=== PATIENT | male | born 1945 | race Caucasian/White ===

== ENCOUNTER 2017-11-02 10:16 | Outpatient (CLI) | payer MEDICARE ==
--- NOTE | 2017-11-02 13:19 | CT ---
CT ABDOMEN AND PELVIS WITH AND WITHOUT CONTRAST: Technique: Multiple axial tomograms were obtained in the abdomen and pelvis without IV enhancement. T his was followed by post contrast imaging of the abdomen and pelvis with IV enhancement in the portal venous and delayed venous phase following a urographic protocol. History: Microhematuria. FINDINGS: Review of the noncontrast images show no evidence of urinary tract calculus. No hydronephrosis is see n. The bladder is contracted on the noncontrast images. Review of the post contrast study show numerous small renal cystic lesions. The largest of these is s een in the left renal cortex measuring approximately 1.0 cm. The other lesions are subcentimeter and too small to adequately characterize. There is no enhancing mass identified. On the delayed sequence contrast is seen in the collecting structures. The bladder is never distended and remains mildly cont rasted even on the delayed sequence, therefore, adequate bladder evaluation cannot be made. Images through the lung bases show a small peripheral pleural base nodule in the left lung base measu ring approximately 5 mm. There is pleural plaque like calcification over the right hemidiaphragm. Thi s suggests prior asbestos exposure. There is mild plaque like calcification involving the left hemidi aphragm as well. There are numerous hepatic cystic lesions. The largest is in the upper right lobe under the diaphragm measuring approximately 4.5 cm diameter. There is a 2.4 cm cyst in the left lobe and there are sever al other smaller hepatic cystic lesions which are subcentimeter. The spleen and pancreas appear unremarkable. There are bilateral adrenal nodules. There is a nodule from the lateral limb of the right adrenal khloe suring 1.5 cm on coronal images and there is a nodule involving the left adrenal measuring up to 2.3 cm on the coronal images. The precontrast density of both of these nodules are low, indicating benign adenomas. Aorta is normal caliber. Small bowel loops appear normal. Appendix is normal. Scattered diverticula a re seen throughout the colon, more prominent in the left colon and sigmoid. No significant prostatic hypertrophy identified. No adenopathy identified. There are at least two radiopaque gallstones layering dependently in the gallbladder. IMPRESSION: 1. There are numerous small low density lesions throughout both kidneys. Most of these are subcentime ter and too small to adequately characterize. A repeat contrasted CT abdomen could be performed in 6- 12 months to confirm stability of these tiny lesions. 2. The bladder is not adequately evaluated due to contraction on all sequences. 3. Bilateral adrenal nodules which have densities consistent with benign adenomas. 4. Multiple hepatic cysts. 5. Cholelithiasis. 6. Images through the lung bases reveal calcified pleural plaque in the lung bases. A tiny pleural ba sed nodule in the left peripheral left lower lobe is seen. Consider dedicated CT chest which could be performed with low dose protocol for screening. POS: [facility]
[2017-11-02] MEDS ORDERED: Iopamidol 370 76% 100 ML VIAL ONE (14:02)
== END 2017-11-02 10:17 | disposition home or self-care (01) ==
LOC: CT 10:16
PROVIDERS: ATTEND Urology
DX: R31.29 Other microscopic hematuria (principal); K80.20 Calculus of gallbladder without cholecystitis without obstruction; E27.8 Other specified disorders of adrenal gland; N28.89 Other specified disorders of kidney and ureter; K76.89 Other specified diseases of liver
CPT/HCPCS: 74178

== ENCOUNTER 2018-01-26 12:34 | Outpatient (CLI) | payer MEDICARE | END 2018-01-26 12:35 | disposition home or self-care (01) | LOC: BICCT 12:34 | PROVIDERS: ATTEND Family Medicine | DX: Z77.090 Contact with and (suspected) exposure to asbestos (principal); R91.1 Solitary pulmonary nodule | CPT/HCPCS: 36415; 71250; 84153; 84154 ==

== ENCOUNTER 2018-03-10 23:05 | Observation (INO) | payer MEDICARE ==
[2018-03-10 23:29] LABS: #Lymphocytes 1.6 thou/uL (1.20-3.40); #Monocytes 0.5 thou/uL (0.11-0.59); #Neutrophils 4.7 thou/uL (1.40-6.50); %Basophils 0.6 % (0.0-1.0); %Eosinophils 0.7 % (0.0-10.0); %Lymphocytes 23.1 % (21.0-51.0); %Monocytes 7.1 % (0.0-10.0); %Neutrophils 68.4 % (42.0-75.0); Mean Corpuscular Volume 91.4 fl (80.0-94.0); Mean Platelet Volume 7.8 fL (7.4-10.4); Platelet Count 154 thou/uL (130-400); RBC Distribution Width 12.7 % (11.5-14.5); White Blood Cell (WBC) Count 6.9 thou/uL (4.8-10.8)
[2018-03-10 23:52] LABS: ALT (SGPT) 32 U/L (8-55); AST (SGOT) 20 U/L (5-34); Albumin 4.5 g/dL (3.4-4.8); Alkaline Phosphatase 93 U/L (40-150); Anion Gap 16 mmol/L (10-20); BUN (Urea Nitrogen) 18 mg/dL (8.4-25.7); Bilirubin, Total 0.6 mg/dL (0.2-1.2); CK (CPK) 35 U/L (30-200); Calc. Creatinine Clearance 0 mL/min (70-130); Calcium 9.8 mg/dL (7.8-10.44); Carbon Dioxide 20 mmol/L (23-31); Chloride 106 mmol/L (98-107); Estimated GFR-MDRD 73; Globulin 3.1 g/dL (2.4-3.5); Glucose 155 mg/dL (83-110); Potassium 3.7 mmol/L (3.5-5.1); Protein, Total 7.6 g/dL (5.8-8.1); Sodium 138 mmol/L (136-145)
[2018-03-10 23:56] LABS: CKMB 0.5 ng/mL (0-6.6); Troponin I Less than 0.010 ng/mL (< 0.028)
[2018-03-11] MEDS ORDERED: Nitroglycerin 2% Ointment 1 INCH/1 GM Packet ONE (01:00)
[2018-03-11] MEDS ORDERED: Nitroglycerin 0.4 MG TAB (25 Tab Bottle) ONE (01:00)
[2018-03-11] MEDS ORDERED: Metoprolol Tartrate 5 MG/5 ML VIAL ONE (01:00)
[2018-03-11] MEDS ORDERED: Morphine 4 MG/ML VIAL ONE ×2 (02:10→17:08)
[2018-03-11 03:18] LABS: Troponin I 0.028 ng/mL (< 0.028)
[2018-03-11] MEDS ORDERED: Ondansetron ODT 4 MG TAB ONE (03:50)
[2018-03-11 04:54] VITALS: BMI 27.1
[2018-03-11] MEDS ORDERED: Ondansetron ODT 4 MG TAB SL PRN (05:23)
[2018-03-11] MEDS ORDERED: Ondansetron HCl/PF 4 MG/2 ML Vial IVP PRN ×2 (05:23→19:07)
[2018-03-11] MEDS ORDERED: Nitroglycerin 0.4 MG TAB (25 Tab Bottle) SL SCH (05:30)
[2018-03-11] MEDS ORDERED: Pregabalin 75 MG CAP PO SCH ×3 (05:45→15:00)
[2018-03-11 06:12] LABS: Troponin I 0.017 ng/mL (< 0.028)
[2018-03-11] MEDS ORDERED: Morphine 4 MG/ML VIAL SLOW IVP SCH (06:45)
[2018-03-11] MEDS ORDERED: Losartan 25 MG TAB PO SCH (09:00)
[2018-03-11] MEDS ORDERED: Aspirin 325 MG TAB PO SCH (09:00)
--- NOTE | 2018-03-11 09:03 | RAD ---
PORTABLE AP CHEST: Date: 03/10/18 HISTORY: Chest pain. FINDINGS: There is calcified pleural based plaque seen overlying the left mid lung zone and at the right lung b ase. Lungs are otherwise clear. Cardiac silhouette and pulmonary vasculature are within normal limits . Thoracic aorta is ectatic. IMPRESSION: 1. No acute cardiopulmonary process. 2. Calcified pleural based plaques bilaterally. This can be seen with prior asbestos exposure. POS: [facility]
[2018-03-11] MEDS: HYDROcodone/Acetaminophen 10/325 mg Tablet PO SCH ×4 (09:51→21:53)
--- NOTE | 2018-03-11 10:29 | ULT ---
RIGHT UPPER QUADRANT ULTRASOUND: Date: 03/11/18 COMPARISON: None. HISTORY: Pain, abnormal CT. TECHNIQUE: Multiplanar Garrido scale sonographic imaging of the right upper quadrant obtained. FINDINGS: Imaged pancreas is grossly unremarkable, but poorly assessed secondary to body habitus and bowel gas. The hepatic parenchyma is slightly heterogeneous and echogenic. Scattered hepatic cysts are noted, be tter assessed on recent CT examination of the abdomen also performed 03/11/18. Gallbladder is not well assessed on this examination secondary to body habitus and echogenicity of th e hepatic parenchyma. Recent CT demonstrated findings suggesting small stones, which could not be see n on this study. Gallbladder wall is thickened, measuring 5.0 mm. The right kidney is echogenic with diffuse cortical thinning, poorly assessed on this exam. The slipper maker reports a positive Moya's sign. IMPRESSION: Positive Moya's sign with thickened gallbladder wall. Findings suspicious for possible cholecystit is. Surgical consultation advised. POS: [facility]
[2018-03-11] MEDS ORDERED: Lidocaine 1% PF 5 ML VIAL ONE (11:32)
[2018-03-11] MEDS ORDERED: PHENYLEPHRINE-NS 100 MCG/ML 10 ML SYRINGE ONE (11:32)
[2018-03-11] MEDS ORDERED: Labetalol 100 MG/20 ML MDV ONE (11:32)
[2018-03-11] MEDS ORDERED: ePHEDrine/0.9% NaCl/PF SYRINGE 50 mg/10 ml ONE (11:32)
[2018-03-11] MEDS ORDERED: Succinylcholine Chloride 20 MG/ML 10 ml SYRINGE FS ONE (11:32)
[2018-03-11] MEDS ORDERED: PROPOFOL 200 MG/20 ML VIAL ONE (11:32)
--- NOTE | 2018-03-11 11:42 | CT ---
PRELIMINARY REPORT/[facility]/EMERGENTY AFTER-HOURS PROCEDURE Addendum created by Alfredito Andrea MD on 03/11/2018 2:07 AM Central Time ([place]) Examination r esults of the patient were discussed with KATE TRINIDAD on 03/11/2018 at 2:06 AM CDT C[employer] SERVICES SPECIALIST. 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 HX AAA repair TECHNIQUE: Axial computed tomographic angiography images of the chest with intravenous contrast using pulmonary embolism protocol. MIP reconstructed images were created and reviewed. Coronal and sagittal reformatt ed images were created and reviewed. COMPARISON: No relevant prior studies available. FINDINGS: Pulmonary arteries: The pulmonary arterial system is suboptimally opacified with I.V. contrast. While no definite central pulmonary emboli are appreciated, pulmonary emboli in the distal lobar and segme ntal branches cannot be excluded on the basis of this study. Contrast density measurement within the main pulmonary artery is 113 HU. Aorta: Normal caliber thoracic aorta without dissection or aneurysm. Lungs: No alveolar infiltrate. No mass. Pleural space: Calcified pleural plaques. No pneumothorax. No pleural fluid collection. Heart: Minimal anterior pericardial fluid. No evidence of RV dysfunction. Thyroid: Bilateral thyroid nodules. Mild retrosternal extension of the right lobe of the thyroid. Bones/joints: No acute fracture. No dislocation. Soft tissues: Unremarkable. Lymph nodes: Unremarkable. No enlarged lymph nodes. IMPRESSION: 1. Normal caliber thoracic aorta without dissection or aneurysm. 2. No alveolar infiltrate. 3. Calcified pleural plaques. 4. Minimal anterior pericardial fluid. 5. Suboptimal contrast opacification of the pulmonary arterial sytem. No central pulmonary emboli are seen but more distal emboli cannot be excluded by this study. CT Angiography Abdomen With Intravenous Contrast TECHNIQUE: Axial computed tomographic angiography images of the abdomen with intravenous contrast. MIP reconstru cted images were created and reviewed. Coronal and sagittal reformatted images were created and reviewed. COMPARISON: No relevant prior studies available. FINDINGS: Aorta: Normal-caliber abdominal aorta without aneurysm or dissection. Celiac trunk and mesenteric arteries: SMA originates from the celiac axis - a normal variant. No occl usion or significant stenosis. Renal arteries: No acute findings. No occlusion or significant stenosis. Lung bases: Unremarkable. No mass. No consolidation. Liver: Cysts within the liver as well as a few hypodensities which are too small to definitively jamar acterize. Gallbladder and bile ducts: Small calcified stones within the gallbladder. 2 air collections within t he gallbladder fundus with trace external stranding which may reflect a cholangitis / cholecystitis. No ductal dilation. Pancreas: Unremarkable. No ductal dilation. No mass. Spleen: Unremarkable. No splenomegaly. Adrenals: Bilateral nodular adrenal glands. Kidneys and ureters: Unremarkable. No hydronephrosis. No solid mass. Stomach and bowel: Scattered colon diverticuli without evidence of diverticulitis. No obstruction. Appendix: Normal appendix. Intraperitoneal space: Unremarkable. No significant fluid collection. No free air. Bones/joints: See above. Soft tissues: Small fat-containing umbilical hernia. Lymph nodes: Unremarkable. No enlarged lymph nodes. IMPRESSION: 1. Small calcified stones within the gallbladder. 2 air collections within the gallbladder fundus wit h trace external stranding which may reflect a cholangitis / cholecystitis. 2. Normal-caliber abdominal aorta without aneurysm or dissection. 3. Scattered colon diverticuli without evidence of diverticulitis. Thank you for allowing us to participate in the care of your patient. Dictated and Authenticated by: Alfredito Andrea MD 03/11/2018 1:43 AM Central Time ([place]) FINAL REPORT CT AORTIC DISSECTION PROTOCOL: Date: 03/11/18 HISTORY: Chest pain, prior AAA. COMPARISON: CT chest dated 02/05/18. CT abdomen and pelvis dated 11/02/17. TECHNIQUE: CT angiogram of the chest and abdomen performed after the intravenous administration of contrast. 3D rendering provided. FINDINGS/IMPRESSION: Findings and impression are concordant with the preliminary report. The small foci of gas within the gallbladder may be reflux in nature. There is also a small focus of gas in the left intrahepatic bili albert system. Recommend correlation for history of sphincterotomy. POS: [facility]
[2018-03-11] MEDS ORDERED: Sodium Chloride 0.9% 1,000 ML IV SCH (11:45)
[2018-03-11] MEDS ORDERED: Piperacillin/Tazobactam 3.375 GM in Sodium Chloride 0.9% 100 ML IVPB SCH ×2 (11:45→12:00)
[2018-03-11] MEDS ORDERED: Morphine 4 MG/ML VIAL IV PRN (11:51)
[2018-03-11] MEDS ORDERED: Pantoprazole 40 MG VIAL IVP SCH (12:00)
[2018-03-11] MEDS ORDERED: Dextrose 5% in Water 1,000 ML IV PRN (13:33)
[2018-03-11] MEDS ORDERED: Dextrose 50% Abboject 50 ML SYRINGE SLOW IVP PRN (13:33)
[2018-03-11] MEDS ORDERED: HumaLOG 300 UNITS/3 ML VIAL SC PRN (13:33)
--- NOTE | 2018-03-11 13:39 | PDOC.EVN ---
Event Note - Event Note Event Note: [facility] #[id number]
--- NOTE | 2018-03-11 13:58 | HP ---
DATE OF ADMISSION: 03/11/2018 CHIEF COMPLAINT: Abdominal pain. HISTORY OF PRESENT ILLNESS: This is a 72-year-old male admitted to the hospital due to severe signif icant abdominal pain. The patient was stating that the pain was on and off for the past few months a nd suddenly it got terrible prior to admission and that is why he came in. The patient states that h e currently has worsening abdominal pain. Had an episode of nausea. Denies any other diarrhea, cons tipation, chest pains, fevers or chills. Pain is epigastric, right upper quadrant radiated around to the back, dull, throbbing as well as cramping in nature, 8/10 with fluids, otherwise, 5/10. The pat ient has no other alleviating or aggravating factors. No associated symptoms. The patient is seen a nd examined. All questions answered. ALLERGIES: No known drug allergies. PAST MEDICAL HISTORY: Positive for diabetes mellitus, hyperlipidemia, hypertension, and diabetic cali ropathy. HOME MEDICATIONS: Includes glimepiride 2 mg daily, morphine sulfate 50 mg p.o. t.i.d., atorvastatin 20 mg p.o. daily, diltiazem 120 mg p.o. b.i.d., [place] 10/325 q.i.d. p.r.n. pain, losartan 100 mg p.o. daily, and pregabalin 150 mg p.o. t.i.d. SOCIAL HISTORY: Denies any smoking. Social drinker. FAMILY HISTORY: Not positive for anything pertinent. REVIEW OF SYSTEMS: Twelve point review of systems performed. Pertinent positives in the HPI. PHYSICAL EXAMINATION: VITAL SIGNS: Blood pressure 181/97, respiratory rate 16, heart rate of 85, temperature of 97.9. GENERAL: The patient appears in mild to moderate distress. HEENT: Pupils equal, round, react to light and accommodation. Extraocular muscles intact. Oral cav ity is moist and pink. NECK: Supple, nontender, mobile thyroid. LUNGS: Positive. Clear to auscultation bilaterally, no rales, rubs or crackles appreciated. CARDIAC: Regular rate and rhythm. S1 and S2. No murmurs, rubs or gallops appreciated. ABDOMEN: Positive Moya sounds in right upper quadrant. Positive bowel sounds. Mildly tender to p alpation. EXTREMITIES: 2+ peripheral pulses. No edema noted. NEUROLOGIC: Cranial nerves II-XII intact. No loss of motor or sensory function. LABORATORY DATA AND IMAGING DATA: WBC normal. BMP normal. Troponin is negative x4. Abdominal ultr asound shows gas in the region of the gallbladder wall fundus, probable stones suspicious for acute c holecystitis. CT shows normal caliber thoracic aorta without dissection or aneurysm. No alveolar in filtrates, calcified plaques and thickened gallbladder. ASSESSMENT AND PLAN: 1. Cholecystitis. 2. Diabetes mellitus type 2. 3. Hypertension. 4. Hyperlipidemia. 5. Diabetic neuropathy. At this point in time, we will place the patient on n.p.o. Admit to Internal Medicine Team. Consult Surgery. Start patient on Zosyn as well as IV fluids. We will await surgical input. Likely we julianna l need gallbladder removal. The patient is to remain a FULL CODE. SCDs for DVT prophylaxis and we w ill also start the patient on PPI inhibitors. Case and plan discussed with patient at length. He un derstands and agrees with this plan.
[2018-03-11] MEDS ORDERED: ISOVUE-370 76%-LOCM 1 ML ONE (14:19)
[2018-03-11] MEDS ORDERED: Ketorolac Tromethamine 30 MG/ML VIAL ONE (15:54)
--- NOTE | 2018-03-11 16:23 | HP ---
HISTORY OF PRESENT ILLNESS: Miki Kang is a 72-year-old male who lives in [facility] with his a nd daughter, presents to the hospital with epigastric pain and nausea. He was seen in the emergency room and evaluated. CBC, basic metabolic profile and liver function tests are normal. He had a CT s can dissection protocol that was unremarkable except for gallstones and questionable changes of jazmin cystitis. He had an ultrasound of his gallbladder revealing a normal bile duct caliber, nonvisualiza tion of the stones. Review of his computer reveals that he had a CAT scan last year demonstrating ga llstones. The patient was unaware that. The patient has been having episodes of epigastric pain. H e has been attributing to reflux, but he does not experience any chest heartburn. He has been taking Protonix at home for the intermittent epigastric pain. ALLERGIES: None. TOBACCO: None. ALCOHOL: Socially, rarely. MEDICATIONS: P.r.n. hydrocodone for chronic low back pain. He received lumbar injection last week i n Silvio, losartan, Cozaar 100 mg a day, diltiazem 120 b.i.d., glimepiride 2 mg daily p.r.n., morphi ne sulfate ER 50 mg p.o. t.i.d. for chronic back pain, Lyrica 150 mg t.i.d. for his neuropathy. REVIEW OF SYSTEMS: Atorvastatin 20 mg at bedtime. 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 He has had ORIF of his ankle, hip replacement. He had a colonoscopy 3 years ag o that was normal. 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 His activity is limited by his chronic back pain and his neuropathy. REVIEW OF SYSTEMS: Ten point noncontributory. He has never had any cardiac symptoms nor has he had any cardiac evaluations except for intermittent EKG, which he had this hospitalization was normal. PHYSICAL EXAMINATION: VITAL SIGNS: 6 feet 2, 211 pounds, 27 BMI, 97.9, 85, 181/97. HEAD, EARS, EYES, NOSE, AND THROAT: Unremarkable. LUNGS: Clear to auscultation. CARDIAC: Regular rate and rhythm without murmur or gallop. ABDOMEN: Soft. Mild tenderness in the epigastric right upper quadrant with mild guarding. EXTREMITIES: Unremarkable. Midline incision in the upper abdomen well healed. No hernias. LABORATORY DATA: White count 6, hemoglobin 17. Comprehensive metabolic profile unremarkable. Gluco se 155, carbon dioxide 20. Liver function tests normal. Lipase normal. ASSESSMENT AND PLAN: 1. Cholecystitis, cholelithiasis, CAT scan suggested a pericholecystic changes and a gallstone. Gal lstone was not seen on ultrasound and CAT scan last year showed gallstone. He was unaware of this ga llstone last year. He has had intermittent symptoms of the epigastric pain in the last several years . He has been taking Protonix for that. I have recommended laparoscopic video cholecystectomy. Unf ortunately, he had an omelet 8:00 this morning and will have to wait 8 hours post-fatty food intake f or cholecystectomy. We will plan laparoscopic cholecystectomy at 4:00 p.m. today. Postoperatively, he could be discharged home this evening or stay overnight. I have talked to his family about this. I have talked to the patient's family regarding the operative procedure, perioperative convalescence expectations, and also talked to them about the risk of operation including infection, bleeding, vis ceral and biliary injury, possibly open procedure and they consent. 2. Diabetes mellitus. 3. Hypertension. 4. Chronic back pain, L1 through L5 with herniated disk, receiving an injection in the last week or two in [place] 5. Neuropathy, on Lyrica for that.
[2018-03-11] MEDS: Pregabalin 75 MG CAP PO SCH ×2 (17:23→21:54)
[2018-03-11] MEDS ORDERED: Bupivacaine HCl 0.5%/Epinephrine 1:200,000/PF 30 ml Vial ONE (17:47)
[2018-03-11] MEDS ORDERED: Fentanyl 100 MCG/2 ML VIAL ONE (18:12)
[2018-03-11] MEDS ORDERED: Fentanyl 250 MCG/5 ML VIAL ONE (18:28)
[2018-03-11] MEDS ORDERED: Promethazine HCl 25 MG/ML VIAL IM PRN (19:07)
[2018-03-11] MEDS ORDERED: Promethazine HCl 25 MG/ML VIAL SLOW IVP PRN (19:07)
[2018-03-11] MEDS ORDERED: traMADol HCl 50 MG TAB PO PRN ×2 (19:33)
[2018-03-11] MEDS ORDERED: Acetaminophen 500 MG TAB PO PRN (19:33)
[2018-03-11] MEDS ORDERED: Ibuprofen 600 MG TAB PO PRN (19:33)
[2018-03-11] MEDS ORDERED: Fentanyl 100 MCG/2 ML VIAL SLOW IVP SCH (20:45)
--- NOTE | 2018-03-11 21:32 | OP ---
DATE OF PROCEDURE: 03/11/2018 PREOPERATIVE DIAGNOSIS: Acute on chronic cholecystitis and cholelithiasis. POSTOPERATIVE DIAGNOSIS: Acute on chronic cholecystitis and cholelithiasis. PROCEDURE PERFORMED: Laparoscopic video cholecystectomy. SURGEON: Elder Bah M.D. ANESTHESIA: General. Local 0.5% Marcaine with epinephrine 30 mL. PROCEDURE IN DETAIL: The patient was taken to the operating room where under general anesthesia, abd omen was prepared with ChloraPrep, draped in routine fashion. Local anesthetic 0.5% Marcaine with ep inephrine infiltrated into the skin and subcutaneous tissue about all port sites, total volume 30 mL used. Infraumbilical incision made and pneumoperitoneum to 15 mmHg obtained with the Veress needle, replacing it with a 5 port and video laparoscope inserted. There were no adhesions to the abdominal wall. Right subxiphoid incision made and 11 port placed. Right subcostal incision made, mid clavicu lar anterior axillary lines and 5 ports placed. There were omental adhesions over the gallbladder fu ndus taken down with the cautery, identifying the fundus, grasped and reflected cephalad. Dissection carried out freeing the gallbladder, grasping the infundibulum and reflecting laterally. Cystic art britton and duct dissected free. Critical view obtained. Cystic artery and duct doubly clipped proximal ly, divided, and gallbladder dissected free from liver bed obtaining good hemostasis prior to divisio n of final peritoneal attachments. Gallbladder seemed to be intrahepatic and hemostasis was obtained in the liver bed using cautery and April applied. Irrigant and pneumoperitoneum evacuated. All in struments removed and all skin incisions approximated with interrupted subdermal 4-0 Monocryl and Bogdan maGlue applied.
[2018-03-11] MEDS: Atorvastatin Calcium 20 MG TAB PO SCH (21:52)
[2018-03-11] MEDS: Losartan 25 MG TAB PO SCH (21:54)
[2018-03-12] MEDS: Morphine 4 MG/ML VIAL SLOW IVP PRN ×2 (02:48→07:00)
[2018-03-12] MEDS ORDERED: Mag-Al 1200 mg/1200 mg/30 ML UDCUP PO PRN (04:33)
[2018-03-12 07:55] LABS: #Lymphocytes 0.9 thou/uL (1.20-3.40); #Monocytes 1.2 thou/uL (0.11-0.59); #Neutrophils 8.6 thou/uL (1.40-6.50); %Eosinophils 0.4 % (0.0-10.0); %Lymphocytes 8.8 % (21.0-51.0); %Monocytes 11.1 % (0.0-10.0); %Neutrophils 79.7 % (42.0-75.0); Hemoglobin 15.8 g/dL (14.0-18.0); Mean Corpuscular HGB CONC 33.4 g/dL (32.0-36.0); Mean Corpuscular Hemoglobin 31.1 pg (27.0-31.0); Mean Corpuscular Volume 93.1 fl (80.0-94.0); Mean Platelet Volume 7.6 fL (7.4-10.4); Platelet Count 146 thou/uL (130-400); RBC Distribution Width 13.1 % (11.5-14.5); Red Blood Cell (RBC) Count 5.09 mill/uL (4.70-6.10); White Blood Cell (WBC) Count 10.8 thou/uL (4.8-10.8)
--- NOTE | 2018-03-12 08:14 | PRG ---
DATE OF SERVICE: 03/12/2018 SUBJECTIVE: Mr. Kang is doing well today, although complains of right shoulder pain, upper abdo juve pain and pain more than he expected. He has had some mild nausea intermittently, but none curr ently. He has tolerated liquids. PHYSICAL EXAMINATION: VITAL SIGNS: Temperature 97 degrees, 81, 18, 124/74. LABORATORY: None. LUNGS: Clear to auscultation. CARDIAC: Regular rate and rhythm without murmur or gallop. ABDOMEN: Soft, postoperative tenderness as expected after laparoscopic cholecystectomy. Surgical wo und is clean and dry. The abdomen is soft without guarding otherwise. ASSESSMENT AND PLAN: 1. Referred pain, right shoulder, probably secondary to cholecystectomy. We will however, check lab oratories today, CBC and comp met. We will observe him today and hold discharge pending clinical imp rovement, possibly can go home later today or tomorrow. 2. Chronic pain. He takes morphine ER orally 1.5 mg p.o. t.i.d. and [place] 10/325 four times a day a s needed. We will resume his preoperative chronic pain management.
[2018-03-12 08:25] LABS: ALT (SGPT) 88 U/L (8-55); AST (SGOT) 63 U/L (5-34); Albumin 4.3 g/dL (3.4-4.8); Alkaline Phosphatase 83 U/L (40-150); Anion Gap 15 mmol/L (10-20); BUN (Urea Nitrogen) 19 mg/dL (8.4-25.7); Bilirubin, Total 0.8 mg/dL (0.2-1.2); Calc. Creatinine Clearance 75 mL/min (70-130); Calcium 9.8 mg/dL (7.8-10.44); Carbon Dioxide 26 mmol/L (23-31); Chloride 103 mmol/L (98-107); Estimated GFR-MDRD 58; Glucose 174 mg/dL (83-110); Potassium 3.8 mmol/L (3.5-5.1); Protein, Total 7.3 g/dL (5.8-8.1); Sodium 140 mmol/L (136-145)
[2018-03-12] MEDS: Polyethylene Glycol 3350 17 GM Packet PO SCH (08:35)
[2018-03-12] MEDS: Pregabalin 75 MG CAP PO SCH ×3 (08:36→21:23)
[2018-03-12] MEDS: Morphine ER 15 MG TAB PO SCH ×3 (08:37→21:22)
[2018-03-12] MEDS: HYDROcodone/Acetaminophen 10/325 mg Tablet PO SCH ×4 (08:37→21:19)
[2018-03-12] MEDS: Glimepiride 2 MG TAB PO PRN (08:42)
--- NOTE | 2018-03-12 08:52 | PDOC.PN ---
- Subjective Encounter Start Date: 03/12/18 Encounter Start Time: 08:50 Subjective: nsg notes rev, macey lap jazmin, currently c/o abd pain intermittently -: + small amts of flatus, no BM post op since, noted 10bt VT ovn, grossly -: asymptomatic - Objective Vital Signs & Weight: Vital Signs (12 hours) Temp Pulse Resp BP BP BP Pulse Ox 03/12/18 08:38 85 109/67 03/12/18 08:00 98.3 F 85 16 109/67 96 03/12/18 04:00 97.7 F 81 18 124/74 98 03/12/18 00:00 98.4 F 83 18 146/87 H 97 Weight Weight 211 lb 4.8 oz I&O: 03/11/18 03/12/18 03/13/18 06:59 06:59 06:59 Intake Total 620 Output Total 350 Balance 270 Result Diagrams: 03/12/18 07:50 03/12/18 07:50 Additional Labs: Accuchecks 03/11/18 21:12 POC Glucose 182 H Phys Exam - Physical Examination Constitutional: NAD seated on EOB, family at bedside HEENT: PERRLA, moist MMs, sclera anicteric Neck: no nodes Respiratory: no wheezing, no rales, no rhonchi, clear to auscultation bilateral Cardiovascular: RRR, no significant murmur, no rub Gastrointestinal: soft, positive bowel sounds decreased bs, surg sites c/d/i Musculoskeletal: no edema, pulses present Neurological: moves all 4 limbs Psychiatric: normal affect Dx/Plan - Plan * cholecystitis * apprec surg c/s * s/p lap jazmin 03/11 10 bts VT ovn * appears to have been asymptomatic * check EKG, trop, mg, ECHO * continue on tele * card c/s with pt req hx aneurysm w/o repeat episodes during this hospital stay diet: as per surg, adv as macey activity: oob as macey dvt ppx Review of Systems - Medications/Allergies Allergies/Adverse Reactions: Allergies Allergy/AdvReac Type Severity Reaction Status Date / Time No Known Drug Allergies Allergy Verified 03/11/18 06:10 Medications: Current Medications Acetaminophen (Tylenol) 1,000 mg PO Q6H PRN PRN Reason: Moderate to Severe Pain (6-10) Last Admin: 03/11/18 23:34 Dose: 1,000 mg Hydrocodone Bitart/Acetaminophen ([place] 10/325) 1 tab PO QID [facility] Last Admin: 03/12/18 08:37 Dose: 1 tab Al Hydroxide/Mg Hydroxide (Maalox) 30 ml PO Q4H PRN PRN Reason: Heartburn or Indigestion Last Admin: 03/12/18 05:02 Dose: 30 ml Atorvastatin Calcium (Lipitor) 20 mg PO [facility] Last Admin: 03/11/18 21:52 Dose: 20 mg Dextrose/Water (Dextrose 50%) 25 gm SLOW IVP PRN PRN PRN Reason: Hypoglycemia Diltiazem HCl (Cardizem Cd) 120 mg PO BID [facility] Last Admin: 03/12/18 08:38 Dose: 120 mg Glimepiride (Amaryl) 2 mg PO DAILY PRN PRN Reason: Hyperglycemia Last Admin: 03/12/18 08:42 Dose: 2 mg Glucagon (Glucagon) 1 mg IM PRN PRN PRN Reason: Hypoglycemia Dextrose/Water (D5w) 1,000 mls @ 0 mls/hr IV .Q0M PRN; As Directed PRN Reason: Hypoglycemia Piperacillin Sod/Tazobactam (Sod 3.375 gm/ Sodium Chloride) 100 mls @ 200 mls/ hr IVPB Q6HR [facility] Ibuprofen (Motrin) 600 mg PO Q6H PRN PRN Reason: Pain Insulin Human Lispro (Humalog) 0 units SC .MILD SLIDING SCALE PRN PRN Reason: Mild Correctional Scale Losartan Potassium (Cozaar) 100 mg PO [facility] Last Admin: 03/11/18 21:54 Dose: 100 mg Morphine Sulfate (Morphine) 2 mg SLOW IVP Q4H PRN PRN Reason: Pain Last Admin: 03/12/18 07:00 Dose: 2 mg Morphine Sulfate (Ms Contin) 15 mg PO TID [facility] Last Admin: 03/12/18 08:37 Dose: 15 mg Pantoprazole Sodium (Protonix) 40 mg PO DAILY [facility] Last Admin: 03/12/18 08:37 Dose: 40 mg Pneumococcal Polyvalent Vaccine (Pneumovax 23) 0.5 ml IM .ONCE ONE Stop: 03/12/18 09:01 Polyethylene Glycol (Miralax) 17 gm PO DAILY [facility] Last Admin: 03/12/18 08:35 Dose: 17 gm Pregabalin (Lyrica) 150 mg PO TID [facility] Last Admin: 03/12/18 08:36 Dose: 150 mg Sodium Chloride (Flush - Normal Saline) 10 ml IVF Q12HR [facility] Last Admin: 03/12/18 08:36 Dose: 10 ml Sodium Chloride (Flush - Normal Saline) 10 ml IVF PRN PRN PRN Reason: Saline Flush Tramadol HCl (Ultram) 50 mg PO Q6H PRN PRN Reason: Mild Pain (1-3) Tramadol HCl (Ultram) 100 mg PO Q6H PRN PRN Reason: Moderate Pain (4-6)
[2018-03-12 09:42] LABS: Troponin I 0.011 ng/mL (< 0.028)
[2018-03-12] MEDS: Piperacillin/Tazobactam 3.375 GM in Sodium Chloride 0.9% 100 ML IVPB SCH ×2 (12:21→17:46)
--- NOTE | 2018-03-12 15:29 | CON ---
CARDIOLOGY CONSULTATION DATE OF CONSULTATION: 03/12/2018 INDICATION FOR CONSULTATION: A 72-year-old patient who is status post laparoscopic cholecystectomy w ho developed a 6-beat run of nonsustained ventricular tachycardia and then an idioventricular rhythm and then had a sinus beat and then had another couplet and then since that time has remained in sinus rhythm. He has had no previous cardiac history that he is aware of. He has had no previous cardiac evaluation. He does have a history, however, of diabetes, hypertension and hypercholesterolemia in a 72 years old, has never had a stress test that he is aware of. He was in the hospital after he had significant abdominal pain and was found to have cholecystitis and underwent a cholecystectomy lapar oscopically and has been doing quite well since that time. He has some abdominal discomfort, but now has stabilized. He did have an echocardiogram today, which shows a normal ejection fraction with mi ld tricuspid and mitral valve regurgitation and also he has [id number] left atrial dilatation. Right ventricular size was also normal. He has had no complaints of chest pain. His original EKG d id show evidence of normal sinus rhythm with T-wave inversion in the anterior leads. We do not have any old EKGs for comparison. PAST MEDICAL HISTORY: Significant for diabetes, hypertension, hypercholesterolemia, diabetic neuropa thy. He has had dental surgery and oral surgery. He has had some type of abdominal aortic aneurysm repair or some other type of vascular surgery done approximately in 2013, but uncertain. This was do ne at [facility]. He has also had a right hip replacement about 8 years ago. He has a left ankl e fracture, which required surgery. ALLERGIES: None. MEDICATIONS PRIOR TO ADMISSION: Included glimepiride, morphine 50 mg t.i.d., atorvastatin 20 mg kishan y, diltiazem 120 mg b.i.d., [place] 10/325 q.i.d. p.r.n. for pain, losartan 100 mg a day, pregabalin 15 0 mg t.i.d. SOCIAL HISTORY: No history of alcohol or tobacco abuse. FAMILY HISTORY: Noncontributory. No early family history of heart disease. REVIEW OF SYSTEMS: Twelve point review of systems is relatively unremarkable. He does have some dis comfort when he tries to walk with his left ankle due to previous fracture of the ankle and surgery, but is able to walk with a brace. Otherwise, 12-point review of systems is unremarkable except what is stated in the history of present illness. Please note also, he was asymptomatic with the palpitat ions. PHYSICAL EXAMINATION: GENERAL: Reveals a well-developed, well-nourished gentleman, in no acute distress. VITAL SIGNS: Blood pressure 109/67, heart rate is 85 and regular, respiration rate 16. He is afebri le. HEENT: Shows head to be normocephalic and atraumatic. Carotid pulses are present. He has a very so ft right carotid bruit. CHEST: Clear to auscultation without rales, rhonchi or wheezing. CARDIOVASCULAR: Reveals a regular rate and rhythm. Normal S1, S2. I cannot hear an S3 nor an S4 no r any significant murmurs, heaves, thrills, bruits or rubs noted. ABDOMEN: Shows incisions after his laparoscopic cholecystectomy. They appear to be clean and dry. There were no significant abnormalities. Positive bowel sounds are present. EXTREMITIES: Show no clubbing, cyanosis or edema. Popliteal pulses are present. Femoral pulses are present. I cannot palpate pedal pulses on the right, but pedal pulses on the left were present. NEUROLOGIC: He appears to be fully intact. SKIN: Warm and dry. LABORATORY DATA: Shows a creatinine of 1.23, blood sugar was 174. Hemoglobin 15.8. Cardiac enzymes are negative. Echocardiogram as noted above. Chest x-ray was unremarkable. EKG shows sinus rhythm with T-wave inversions, which were mild in the V1 through V3, which certainly could be indicative of possible ischemia. IMPRESSION: 1. Short run of nonsustained ventricular tachycardia with an idioventricular rhythm, which resolved after all within about less than 5 seconds and the whole event had resolved. He has had no further e pisodes. Unfortunately, he does have significant risk factors for coronary artery disease and does h ave a baseline abnormal EKG. I would suggest he undergo stress testing to rule out evidence for unde rlying ischemia if any is found and then further evaluation by cardiac catheterization would be indic ated. If he has a normal stress test that in addition to essentially normal echocardiogram, then the risk of him having any acute cardiac event due to the nonsustained ventricular tachycardia is less t rasmussen 1%. I would suggest he undergo stress testing prior to discharge from the hospital and further r ecommendations will depend on the results of the stress test. 2. History of diabetes. This is dealt with by the primary care service. His blood sugar was elevat ed at 174. I leave this up to the discretion of the primary service. 3. History of hypertension. This is under good control at this time. 4. Hypercholesterolemia. I did not have any recent cholesterol levels on the patient. This can be managed as an outpatient by the primary care physician. 5. Please also note that he had a right carotid bruit, which is rather soft and this can be worked u p also as an outpatient. He will need to undergo a nuclear stress test since he is unable to walk ve ry well on a treadmill due to his previous left ankle fracture and surgery. Thank you very much for allowing us to see this patient in consultation and we will plan for stress t esting, most likely tomorrow.
--- NOTE | 2018-03-12 16:45 | EKG ---
Test Reason : Blood Pressure : / mmHG Vent. Rate : 075 BPM Atrial Rate : 075 BPM P-R Int : 148 ms QRS Dur : 100 ms QT Int : 374 ms P-R-T Axes : 004 -29 012 degrees QTc Int : 417 ms Normal sinus rhythm T wave abnormality, consider anterior ischemia Abnormal ECG Confirmed by NICHO VARGAS ([id number]) on 03/12/2018 4:45:25 PM Referred By: SINDY Confirmed By:NICHO VARGAS
[2018-03-12] MEDS: Atorvastatin Calcium 20 MG TAB PO SCH (21:18)
[2018-03-13] MEDS: Piperacillin/Tazobactam 3.375 GM in Sodium Chloride 0.9% 100 ML IVPB SCH ×3 (00:40→12:08)
[2018-03-13] MEDS: Losartan 25 MG TAB PO SCH (01:02)
[2018-03-13] MEDS: Morphine 4 MG/ML VIAL SLOW IVP PRN (03:54)
--- NOTE | 2018-03-13 09:07 | PRG ---
DATE OF SERVICE: 03/13/2018 SUBJECTIVE; Miki Kang is doing well today. He feels much better. His abdominal pain is impr luanne once he resumed his chronic pain management regimen. The patient has been on full liquids and t olerated that well. He is n.p.o. this morning for a stress test due to cardiac arrhythmias after servando ng seen by Dr. Martin. PHYSICAL EXAMINATION: LUNGS: Clear to auscultation. CARDIAC: Regular rate and rhythm without murmur or gallop. ABDOMEN: Soft, nontender. Surgical wounds were clean and dry. ASSESSMENT AND PLAN: Doing well status post laparoscopic cholecystectomy. Liver function tests were normal last night. Pathology is pending. At this point, the patient is scheduled for a cardiac str ess test. I recommend he return to see me in the office if needed. Certainly if they have any fausto rns I will be glad to see him. Otherwise, since I have seen him several times postoperatively, I do not think outpatient followup is necessary unless he has problems. At this point, I will see him as needed in the hospital. Please call if necessary.
[2018-03-13] MEDS ORDERED: ADENOSINE 60 MG/20 ML VIAL ONE (09:32)
[2018-03-13] MEDS: HYDROcodone/Acetaminophen 10/325 mg Tablet PO SCH ×2 (09:50→12:10)
[2018-03-13] MEDS: Morphine ER 15 MG TAB PO SCH ×2 (09:50→15:52)
[2018-03-13] MEDS: Pregabalin 75 MG CAP PO SCH ×2 (09:50→15:54)
[2018-03-13] MEDS: Polyethylene Glycol 3350 17 GM Packet PO SCH (12:09)
[2018-03-13] MEDS: Glimepiride 2 MG TAB PO PRN (12:11)
--- NOTE | 2018-03-13 13:17 | NM ---
CARDIAC SPECT: HISTORY: A 72-year-old male with an abnormal EKG, hypertension, diabetes, dyslipidemia, and SVT. TECHNIQUE: A myocardial perfusion scan was performed using the single isotope one-day protocol with technetium 9 9m sestamibi, and 11 millicuries was injected intravenously for the rest exam, followed by 31 millicu luiza for the stress study. Pharmacologic stress with adenosine was monitored and interpreted by Dr. Villegas. FINDINGS: Homogeneous tracer distribution is seen in the myocardial segments on stress and rest images, without fixed or reversible defects. GATED SPECT LVEF: 75% WALL MOTION EXAM: Normal. IMPRESSION: Normal myocardial perfusion scan. POS: RACHELL
[2018-03-13 16:23] VITALS: BP 109/57; TEMP 98.1
== END 2018-03-13 16:50 | disposition home or self-care (01) ==
LOC: ERS 23:05 → 2NO 03-11 02:17
PROVIDERS: ADMIT Internal Medicine; ATTEND Internal Medicine
PROC: 0FT44ZZ Resection of Gallbladder, Percutaneous Endoscopic Approach (ICD-10-PCS; principal; 2018-03-10)
DX: K81.2 Acute cholecystitis with chronic cholecystitis (principal); M54.5 Low back pain; G89.29 Other chronic pain; E11.40 Type 2 diabetes mellitus with diabetic neuropathy, unspecified; I10 Essential (primary) hypertension; E78.5 Hyperlipidemia, unspecified; E78.00 Pure hypercholesterolemia, unspecified; R09.89 Other specified symptoms and signs involving the circulatory and respiratory systems; Z96.641 Presence of right artificial hip joint; Z79.84 Long term (current) use of oral hypoglycemic drugs; Z79.899 Other long term (current) drug therapy; Z98.890 Other specified postprocedural states
CPT/HCPCS: 47562; 71045; 71275; 76705; 78452; 80053 ×2; 82550; 82553; 82962 ×3; 83690; 83735; 84484 ×4; 85025 ×2; 88304; 93005 ×2; 93017; 93306; 96361; 96365; 96366 ×2; 96372; 96374; 96375; 96376 ×3; 99285; A9500; G0378 ×2; 36415; 36416; 93010; A4216; C9113; J0131; J0153; J0670; J1885; J2001; J2270; J2543; J2704; J3010; J7050; Q0162

== ENCOUNTER 2023-08-31 09:53 | Outpatient (CLI) | payer OTHER | END 2023-08-31 09:54 | disposition home or self-care (01) | LOC: ULT 09:53 | PROVIDERS: ATTEND Family Medicine | DX: E04.1 Nontoxic single thyroid nodule (principal) | CPT/HCPCS: 36415; 76536; 80053; 80061; 81001; 82043; 83036; 84443; 85025 ==

== ENCOUNTER 2024-10-14 16:00 | Inpatient (IN) | payer OTHER ==
[2024-10-14 16:54] LABS: #Basophils 0.06 10x3/uL (0.0-0.2); %Basophils 0.8 % (0.0-1.0); %Eosinophils 2.1 % (0.0-10.0); %Neutrophils 61.4 % (42.0-75.0); Hematocrit 48.7 % (42.0-52.0); Hemoglobin 16.5 g/dL (14.0-18.0); Mean Corpuscular HGB CONC 33.9 g/dL (32.0-36.0); Mean Corpuscular Hemoglobin 30.6 pg (27.0-31.0); Mean Corpuscular Volume 90.2 fL (78.0-98.0); Mean Platelet Volume 10.9 fL (7.4-10.4); Platelet Count 195 10x3/uL (130-400); RBC Distribution Width 13.4 % (11.5-14.5)
[2024-10-14 17:08] LABS: Anion Gap 13 mmol/L (10-20); BUN (Urea Nitrogen) 16 mg/dL (8.4-25.7); Calc. Creatinine Clearance 0 mL/min (70-130); Calcium 9.5 mg/dL (7.8-10.44); Carbon Dioxide 25 mmol/L (23-31); Chloride 105 mmol/L (98-107); Estimated GFR 73; Glucose 141 mg/dL (83-110); Sodium 139 mmol/L (136-145)
[2024-10-15] MEDS ORDERED: Heparin 5,000 UNITS/ML VIAL ONE (06:26)
[2024-10-15] MEDS ORDERED: EPINEPHrine 1 MG/ML VIAL ONE (06:26)
[2024-10-15] MEDS ORDERED: Bupivacaine PF 0.5% 30 ML VIAL ONE (06:26)
[2024-10-15] MEDS ORDERED: Midazolam HCl 2 mg/2 ml Vial ONE (07:08)
[2024-10-15] MEDS ORDERED: CEFAZOLIN 2 GM VIAL ONE (07:29)
[2024-10-15] MEDS ORDERED: PROPOFOL 20 ML ONE (07:37)
[2024-10-15] MEDS ORDERED: Lidocaine 2% PF 5 ML VIAL ONE (07:37)
[2024-10-15] MEDS ORDERED: Rocuronium Bromide 10 MG/ML (10ML VIAL) ONE (07:38)
[2024-10-15] MEDS ORDERED: fentaNYL PF 100 MCG/2 ML SYRINGE ONE (07:39)
[2024-10-15] MEDS ORDERED: Phenylephrine 10 MG/ML VIAL ONE (07:40)
[2024-10-15] MEDS ORDERED: Sodium Chloride 0.9% 250 ML 250 ML ONE (07:40)
[2024-10-15] MEDS ORDERED: Glycopyrrolate 0.2 MG/ML 5 ML SYRINGE ONE (08:11)
[2024-10-15] MEDS ORDERED: SUGAMMADEX SODIUM 200 MG/2 ML VIAL ONE (09:11)
[2024-10-15] MEDS ORDERED: Promethazine HCl 25 MG/ML VIAL IM PRN ×2 (09:17→09:26)
[2024-10-15] MEDS ORDERED: Ondansetron HCl/PF 4 MG/2 ML Vial IVP PRN (09:17)
[2024-10-15] MEDS ORDERED: Ipratropium/Albuterol 3 ML NEB NEB PRN (09:26)
[2024-10-15] MEDS ORDERED: Ondansetron PF 4 MG/2 ML Vial IVP PRN (09:26)
[2024-10-15] MEDS ORDERED: traMADol HCl 50 MG TAB PO PRN (09:26)
[2024-10-15] MEDS ORDERED: Acetaminophen 325 MG TAB PO PRN (09:26)
[2024-10-15] MEDS ORDERED: fentaNYL 50 mcg/mL 1 mL Vial ONE (12:00)
[2024-10-15] MEDS: Sodium Chloride 0.9% 1,000 ML IV SCH (12:36)
[2024-10-15 12:51] VITALS: BMI 28.0
[2024-10-15] MEDS: Ipratropium/Albuterol 3 ML NEB NEB SCH (13:10)
[2024-10-15] MEDS: CEFAZOLIN 2 GM in Sodium Chloride 0.9% 100 ML IVPB SCH (14:33)
[2024-10-15] MEDS: Phenylephrine 40 MG/NS 250 ML 40 MG in Premix 1 BAG IVPB SCH (15:16)
[2024-10-15] MEDS: DOPamine 400 MG/D5W 250 ML 250 ML ONE (15:38)
[2024-10-15] MEDS ORDERED: DOPamine 400 MG/D5W 250 ML 250 ML IVPB SCH (16:15)
[2024-10-15] MEDS: Atropine Sulfate 1 mg/10 ml Syringe ONE (17:19)
[2024-10-15] MEDS: traMADol HCl 50 MG TAB PO PRN (19:29)
[2024-10-15] MEDS: Pregabalin 75 MG CAP PO SCH (19:55)
[2024-10-15 21:35] VITALS: TEMP 98.1
[2024-10-15] MEDS: Morphine 2 MG/ML VIAL SLOW IVP PRN (21:48)
[2024-10-16] MEDS ORDERED: Aspirin Chewable 81 MG TAB PO SCH (09:00)
[2024-10-16] MEDS ORDERED: HYDROcodone/Acetaminophen 5/325 mg Tablet ONE (15:20)
== END 2024-10-16 18:14 | disposition home or self-care (01) | DRG 39 ==
LOC: SURG A 10-15 05:55 → CCU 10-15 12:40 → EDSTATUS 10-15 16:00
PROVIDERS: ADMIT Student in an Organized Health Care Education/Training Program; ATTEND Student in an Organized Health Care Education/Training Program
PROC: 03CH0ZZ Extirpation of Matter from Right Common Carotid Artery, Open Approach (ICD-10-PCS; principal; 2024-10-15)
PROC: 03CM0ZZ Extirpation of Matter from Right External Carotid Artery, Open Approach (ICD-10-PCS; 2024-10-15)
PROC: 03CK0ZZ Extirpation of Matter from Right Internal Carotid Artery, Open Approach (ICD-10-PCS; 2024-10-15)
PROC: 03UK0KZ Supplement Right Internal Carotid Artery with Nonautologous Tissue Substitute, Open Approach (ICD-10-PCS; 2024-10-15)
DX: I65.21 Occlusion and stenosis of right carotid artery (principal); I10 Essential (primary) hypertension; E11.9 Type 2 diabetes mellitus without complications; M19.90 Unspecified osteoarthritis, unspecified site; E78.00 Pure hypercholesterolemia, unspecified; Z98.41 Cataract extraction status, right eye; Z98.42 Cataract extraction status, left eye; Z87.891 Personal history of nicotine dependence; Z79.899 Other long term (current) drug therapy
CPT/HCPCS: 36416; 80048; 85025; 86850; 86900; 86901; 94640; C1768; J0171; J0665; J1265; J1644; J2250; J2272; J2371; J2704; J3010; J7030; J7050; J7620